=== PATIENT | male | born 1975 | race Caucasian/White ===

== ENCOUNTER 2024-01-24 18:17 | Emergency (ER) | payer SELFPAY ==
[2024-01-24] MEDS: Sodium Chloride 0.9% 10 ML Syringe FLUSH PRN (18:38)
[2024-01-24] MEDS: Ondansetron 4 MG/2 ML SDV IVPUSH ONE (18:44)
[2024-01-24] MEDS: Sodium Chloride 0.9% 1,000 ML IV STA (18:44)
[2024-01-24] MEDS: HYDROmorphone 0.5 MG/0.5 ML Syringe IVPUSH ONE (18:45)
[2024-01-24] MEDS: Iopamidol 612 MG/ML 100 ML Bottle IVPUSH ONE (18:52)
[2024-01-24] MEDS: Sodium Chloride 0.9% 10 ML Syringe FLUSH ONE (18:53)
[2024-01-24 18:56] LABS: BASOPHILS ABSOLUTE AUTO 0.1 K/mm3 (0.0-0.2); BASOPHILS PERCENT AUTO 0.7 % (0.0-1.0); HEMATOCRIT 43.6 % (42.0-52.0); HEMOGLOBIN 15.3 gm/dl (14.0-18.0); IMMATURE GRAN ABSOLUTE AUTO 0.02 K/mm3 (0.00-0.05); IMMATURE GRAN PERCENT AUTO 0.3 % (0.0-0.4); LYMPHOCYTES ABSOLUTE AUTO 2.8 K/mm3 (1.0-4.8); LYMPHOCYTES PERCENT AUTO 38.4 % (24.0-44.0); MEAN CORPUSCULAR HEMOGLOBIN 31.8 pg (28.0-32.0); MEAN CORPUSCULAR HGB CONC 35.1 g/dl (32.0-36.0); MEAN CORPUSCULAR VOLUME 90.6 fl (83.0-99.0); MEAN PLATELET VOLUME 9.8 fl (9.4-12.4); MONOCYTES ABSOLUTE AUTO 0.6 K/mm3 (0.0-0.8); MONOCYTES PERCENT AUTO 8.1 % (0.0-8.0); NEUTROPHILS ABSOLUTE AUTO 3.8 K/mm3 (1.8-7.7); NEUTROPHILS PERCENT AUTO 52.5 % (41.0-71.0); PLATELET COUNT,PLT 142 K/mm3 (150-400); RED BLOOD CELL COUNT 4.81 M/mm3 (4.52-5.90); WHITE BLOOD CELL COUNT,WBC 7.31 K/mm3 (3.9-11.3)
[2024-01-24 18:57] LABS: APPEARANCE,URINE CLEAR (Clear); BILIRUBIN,URINE NEGATIVE (Negative); COLOR,URINE YELLOW (Yellow); GLUCOSE,URINE NEGATIVE (Negative); KETONES,URINE 1+ (Negative); LEUKOCYTE ESTERASE,URINE NEGATIVE (Negative); NITRITE,URINE NEGATIVE (Negative); OCCULT BLOOD,URINE NEGATIVE (Negative); PROTEIN,URINE NEGATIVE (Negative); UROBILINOGEN,URINE 0.2 (0.2-1.0)
[2024-01-24 19:17] LABS: A/G RATIO 1.1 (1-2); ALANINE AMINOTRANSFERASE,ALT 123 U/L (16-63); ALBUMIN 4.2 g/dl (3.4-5.0); ALKALINE PHOSPHATASE 85 U/L (46-116); ANION GAP 16.9 (5-15); ASPARTATE AMNIOTRANSFERASE,AST 80 U/L (15-37); BILIRUBIN TOTAL 0.7 mg/dL (0.2-1.0); BLOOD UREA NITROGEN,BUN 15 mg/dL (7-18); BUN/CREATININE RATIO 13.6 (14-18); CALCIUM 9.2 mg/dL (8.5-10.1); CARBON DIOXIDE,CO2 22 mEq/L (21-32); CHLORIDE,CL 101 mEq/L (98-107); CREATININE 1.1 mg/dL (0.7-1.3); EST CRCL DRUG DOSING (CG) 87.48 mL/min; ESTIMATED GFR 83 mL/min (>60); GLUCOSE RANDOM 84 mg/dL (70-99); POTASSIUM,K 3.9 mEq/L (3.5-5.1); PROTEIN TOTAL,TP 8.1 g/dl (6.4-8.2); SODIUM,NA 136 mEq/L (136-145)
[2024-01-24 19:28] LABS: C-REACTIVE PROTEIN < 0.05 mg/dL (<0.30)
[2024-01-24] MEDS: Ketorolac 30 MG/ML SDV IVPUSH ONE (20:29)
== END 2024-01-24 20:15 | disposition home or self-care (01) ==
LOC: JD.ED 18:17
DX: R10.31 Right lower quadrant pain (principal); F17.210 Nicotine dependence, cigarettes, uncomplicated; E78.00 Pure hypercholesterolemia, unspecified; Z86.73 Personal history of transient ischemic attack (TIA), and cerebral infarction without residual deficits; Z79.82 Long term (current) use of aspirin; Z79.899 Other long term (current) drug therapy
CPT/HCPCS: 36415; 74177; 80053; 81003; 85025; 86140; 96374; 96375; 99284; J1170; J1885; J2405; J3490; J7030; Q9967